=== PATIENT | male | born 1965 | race Caucasian/White ===

== ENCOUNTER 2018-03-08 17:31 | Observation (INO) | payer BC, SELFPAY ==
[~2018-03-08 17:31] MED LIST: ISOVUE-370 76%-LOCM 1 ML ONE
[2018-03-08 18:27] LABS: CKMB 1.7 ng/mL (0-6.6); Calcium 11.9 mg/dL (7.8-10.44); Troponin I Less than 0.010 ng/mL (< 0.028)
--- NOTE | 2018-03-08 18:29 | RAD ---
PORTABLE CHEST 03/08/18 PROVIDED CLINICAL HISTORY: Chest pain. FINDINGS: The cardiac and mediastinal silhouette is within normal limits. Lungs appear clear. No pleural fluid or pneumothorax apparent. IMPRESSION: No evidence for an acute cardiopulmonary process. POS: OFF
[2018-03-08 18:40] LABS: #Eosinphils 0.2 thou/uL (0.0-0.7); #Monocytes 0.7 thou/uL (0.11-0.59); #Neutrophils 7.9 thou/uL (1.40-6.50); %Eosinophils 1.4 % (0.0-10.0); %Lymphocytes 25.4 % (21.0-51.0); %Monocytes 6.3 % (0.0-10.0); Hemoglobin 15.4 g/dL (14.0-18.0); Mean Corpuscular HGB CONC 39.5 g/dL (32.0-36.0); Mean Corpuscular Hemoglobin 33.4 pg (27.0-31.0); Mean Corpuscular Volume 84.4 fL (78.0-98.0); Mean Platelet Volume 10.2 fL (7.4-10.4); Platelet Count 160 thou/uL (130-400); RBC Distribution Width 13.7 % (11.5-14.5); Red Blood Cell (RBC) Count 4.62 mill/uL (4.70-6.10); White Blood Cell (WBC) Count 11.8 thou/uL (4.8-10.8)
[2018-03-08 18:44] LABS: Band 2 % (5-11); Lymphocytes 13 % (21-51); MDiff Complete? YES; Monocytes 3 % (0-10); Neutrophil 82 % (42-75); PLT Morphology Comment Appears Adequate
[2018-03-08 19:07] LABS: Sodium 136 mmol/L (136-145)
[2018-03-08 19:08] LABS: Chloride 98 mmol/L (98-107); Potassium 4.7 mmol/L (3.5-5.1)
[2018-03-08 19:09] LABS: Anion Gap 20 mmol/L (10-20); BUN (Urea Nitrogen) 17 mg/dL (8.4-25.7); Carbon Dioxide 23 mmol/L (22-29)
[2018-03-08 19:10] LABS: Bilirubin, Total 0.7 mg/dL (0.2-1.2); Calc. Creatinine Clearance 0 mL/min (70-130); Estimated GFR-MDRD 86; Glucose 362 mg/dL (70-105); Protein, Total 6.8 g/dL (6.0-8.3)
[2018-03-08 19:11] LABS: Albumin 4.6 g/dL (3.5-5.0); Globulin 2.2 g/dL (2.4-3.5)
[2018-03-08 19:12] LABS: AST (SGOT) 38 U/L (5-34); Alkaline Phosphatase 100 U/L (40-150)
[2018-03-08 19:13] LABS: ALT (SGPT) 47 U/L (8-55); CK (CPK) 118 U/L (30-200)
[2018-03-08] MEDS ORDERED: Acetaminophen 500 MG TAB ONE (19:25)
[2018-03-08 20:00] LABS: Bilirubin Negative (Negative); Blood, Urine Trace (Negative); Clarity CLEAR (Clear); Glucose, Urine (Dipstick) >=1000 mg/dL (Negative); Leukocyte Negative (Negative); Nitrite Negative (Negative); Protein, Urine (Dipstick) > or equal to 300 mg/dL (Neg-Trace); Specific Gravity, Urine 1.037 (1.002-1.036); Urobilinogen 0.2 mg/dL (0.2-1.0); pH, Urine 6.5 (5.0-9.0)
[2018-03-08 20:02] LABS: Bacteria/HPF None Seen HPF (None Seen); Hyaline Casts/LPF 0-3 HYALINE CAST LPF (0-3 Hyaline); RBC/HPF 0-3 HPF (0-3); Squamous Epithelial 0-3 HPF (0-3); WBC/HPF 0-3 HPF (0-3)
--- NOTE | 2018-03-08 20:58 | CT ---
CTA THORAX WITH CONTRAST: (Computed Tomographic Angiography, chest(noncoronary) with contrast material, and image postprocessin g) (PE protocol) Date: 03/08/18 Time: 8:26 p.m. HISTORY: 52-year-old male with chest pain and dyspnea. TECHNIQUE: IV injection of iodinated contrast: Isovue Scan acquisition timing attempted to coincide with iodinated contrast bolus reaching maximal density in pulmonary arteries. 3D MIP reconstructions. FINDINGS: Pulmonary thromboembolism: none. Lungs: no consolidation or edema. Pneumothorax: none. Pleural effusion: none. There is no thoracic aortic aneurysm or dissection. No cardiomegaly or pericardial effusion. No signi ficant mediastinal or hilar lymphadenopathy. No destructive osseous lesion. No suspicious pulmonary n odule. The liver and spleen are only partially imaged. They both appear enlarged. Hepatic attenuation is diffusely low, consistent with fatty liver. IMPRESSION: 1. No pulmonary thromboembolism. 2. Hepatic steatosis. 3. Hepatosplenomegaly. jnr POS: COURTNEY
[2018-03-08] MEDS ORDERED: Pantoprazole 40 MG VIAL ONE (21:18)
[2018-03-08] MEDS ORDERED: Famotidine 20 MG TAB ONE (21:18)
[2018-03-08] MEDS ORDERED: Nitroglycerin 0.4 MG TAB (25 Tab Bottle) PO PRN (22:27)
[2018-03-08] MEDS ORDERED: Acetaminophen 325 MG TAB PO PRN (23:09)
[2018-03-08] MEDS ORDERED: Ondansetron ODT 4 MG TAB SL PRN (23:09)
[2018-03-08] MEDS ORDERED: Ondansetron HCl/PF 4 MG/2 ML Vial IVP PRN (23:09)
[2018-03-08] MEDS ORDERED: Sodium Chloride 0.9% 1,000 ML IV SCH (23:15)
[2018-03-08 23:31] LABS: Troponin I Less than 0.010 ng/mL (< 0.028)
[2018-03-09 00:11] VITALS: BMI 34.7
[2018-03-09] MEDS ORDERED: Dextrose 50% Abboject 50 ML SYRINGE IVP PRN (01:39)
[2018-03-09] MEDS ORDERED: Dextrose 5% in Water 1,000 ML IV PRN (01:39)
[2018-03-09] MEDS ORDERED: Insulin Regular 300 UNITS/3 ML VIAL SC PRN ×2 (01:39)
[2018-03-09 01:44] LABS: Troponin I Less than 0.010 ng/mL (< 0.028)
[2018-03-09 06:42] LABS: Triglycerides Greater than 3800 mg/dL (Less than 150)
[2018-03-09 06:44] LABS: HDL Cholesterol 21 mg/dL (>60 Neg Risk)
--- NOTE | 2018-03-09 07:55 | HP ---
PRIMARY CARE PHYSICIAN: Enrrique Hendricks MD TIME OF EVALUATION: 10:50 p.m. code status : full code CHIEF COMPLAINT: Chest pain. HISTORY OF PRESENT ILLNESS: A 52-year-old male patient with past medical history of high blood pressure, high cholesterol, diabetes, came to the hospital after having chest pain for 1 week ago. The patient has been on and off, no clear triggers, no alleviating factors, the patient reported the pain has been getting gradually worse, it became severe, most of the time it is about 6/10. REVIEW OF SYSTEMS: Constitutional: No fever, no chills, generalized weakness. Respiratory: No cough, no sputum production, no shortness of breath. Cardiovascular: Chest pain, palpitations, no shortness of breath. Gastrointestinal: No nausea, no vomiting, no diarrhea, no abdominal pain. Central Nervous System: No dizziness, no headache, no feeling lightheaded. Genitourinary: No burning on urination. Extremities: Bilateral leg swelling. All other systems were reviewed and negative except for the findings mentioned in the HPI. PAST MEDICAL HISTORY: High blood pressure, diabetes, high cholesterol. PAST SURGICAL HISTORY: Not reported. PSYCHIATRIC HISTORY: Not reported. SOCIAL HISTORY: No alcohol use, no drugs, no smoking history. ALLERGIES: BENADRYL and DEMEROL. REPORTED MEDICATIONS: Tylenol 325 q.6 hours p.r.n. and aspirin 81 mg daily. PHYSICAL EXAMINATION: VITAL SIGNS: On presentation, blood pressure 163/113, heart rate was 124, respiratory rate was 22, temperature 98.2. Pain 6/10. GENERAL APPEARANCE: The patient is alert, oriented, not in acute distress. HEENT: Eye: Normal conjunctivae. Moist oral mucosae. Anicteric. NECK: No JVD. RESPIRATORY: Bilateral air entry. No rales, no wheezing. Symmetric expansion. CARDIOVASCULAR: Normal rate, regular rhythm. No murmurs, no gallop, no edema. ABDOMEN: Soft. Normal bowel sounds. MUSCULOSKELETAL: Baseline range of motion and strength. No tenderness. SKIN: Warm and intact. No pallor, no rash, no redness. NEUROLOGICAL: Baseline sensory. No evidence of any new focal weakness. Baseline speech. Cranial nerves seem to be intact. PSYCHIATRIC: Good mood. No anxiety. Oriented, optimal judgment. LABORATORY AND DIAGNOSTIC DATA: Reviewed. The patient has white blood cell count 11.8, hemoglobin 15.4, MCV 84, platelet count 160,000, neutrophils 82. Chemistry: Sodium 136, potassium 4.7, chloride 98, carbon dioxide 23, anion gap 20, BUN 17, creatinine 0.92, GFR 86, glucose 262, calcium 11.9, total bilirubin 0.7, AST 38. LFTs are normal. Troponin has been negative x3. UA was reviewed and was negative for infection. Chest CTA was done. The patient has no pulmonary thromboembolism, hepatic steatosis, hepatosplenomegaly. EKG was reviewed. The patient has an EKG showing sinus tachycardia at the rate of 119. No any other evidence of acute ischemic events. ASSESSMENT AND PLAN: The patient will be placed in the hospital with following medical conditions: 1. Chest pain, rule out acute coronary syndrome. Troponins are negative. EKG with no acute ischemic events. The patient willing to go for stress test, we will do in the morning. Further plan depending on stress test report. 2. Uncontrolled hypertension, reconcile home meds, may need IV p.r.n. medication for optimal control. 3. Uncontrolled diabetes, place the patient on sliding scale for optimal control, diabetic diet. 4. There was one episode of fever in the hospital, all workup was negative for infection, we will monitor, we will check for high cholesterol, low cholesterol diet is advised, reconcile home medications. 5. Hyperlipidemia. 6. dvt prophylaxis MTDD
[2018-03-09 07:58] LABS: Cholesterol 1280 mg/dL (< 200 Desired)
[2018-03-09] MEDS ORDERED: Aspirin 325 MG TAB PO SCH (08:00)
--- NOTE | 2018-03-09 14:29 | NM ---
CARDIAC SPECT: CLINICAL HISTORY: 52-year-old male with chest pain, diabetes, hypertension, and dyslipidemia. TECHNIQUE: A myocardial perfusion scan was performed using the single isotope one day protocol with technetium-9 9m sestamibi. 11 mCi were injected intravenously for the rest exam followed by 31 mCi for the stress exam. Exercise stress was monitored and interpreted by Dr. Díaz. FINDINGS: Homogeneous tracer distribution is seen in the myocardial segments on stress and rest images without fixed or reversible defects. GATED SPECT LVEF: 60%. WALL MOTION EXAM: Normal. IMPRESSION: Normal myocardial perfusion scan. POS: NINFA
[2018-03-09 16:03] VITALS: TEMP 98.9
[2018-03-09 16:10] VITALS: BP 151/89
--- NOTE | 2018-03-10 01:56 | DIS ---
DATE OF ADMISSION: 03/08/2018 DATE OF DISCHARGE: 03/09/2018 PROCEDURES PERFORMED: Nuclear stress test. PRIMARY CARE PROVIDER: None. MEDICATIONS: Reconciled at discharge. Resume medications: 1. Aspirin 81 mg daily. 2. Tylenol 500 mg every 6 hours as needed. New Medications: 1. Lovastatin 20 mg in the evening. 2. Fish oil 1000 mg b.i.d. [id number]. 3. Metformin extended release 500 mg once daily. Prescriptions provided for 30 days, no refills. FOLLOWUP: The patient does not have a primary care provider. [facility], specifically Dr. Ahn if she is available. ISSUES TO FOLLOW UP ON IN THE OUTPATIENT SETTIN. Severe hypertriglyceridemia - medication started at discharge 2. Diabetes mellitus, uncontrolled - medication started at discharge 3. Hypercalcemia. 4. Abdominal pain. 5. History of vitamin D deficiency. 6. Hypertension - medication NOT started - see below FINAL DIAGNOSES: 1. Chest pain, with negative cardiac workup. 2. Hypertension. 3. Hypertriglyceridemia. 4. Hypercalcemia. 5. History of vitamin D deficiency. 6. Abdominal pain. 7. Hepatosplenomegaly. 8. Hepatic steatosis HISTORY OF PRESENT ILLNESS: Mr. Carver is a 52-year-old male, who has been away from medical care for the past 10 years due to lack of insurance, who presents with a week of intermittent and at times chest pressure, heart fluttering, upper abdominal discomfort. He was admitted for cardiac evaluation. HOSPITAL COURSE: The patient was monitored overnight and maintained a sinus rhythm with a rate of 80-100 with PACs and an intermittent bundle branch block. He was ruled out with 3 negative troponins, and underwent nuclear stress testing, which showed no significant changes on EKG, and the nuclear medicine reports no perfusion defects with an estimated ejection fraction of 60%. He denies any chest discomfort now. He does report mid abdominal kind of a burning sensation. It is not causing any nausea or vomiting, or limiting PO intake. He is encouraged to follow up with the primary care provider to discuss this further for an outpatient workup. In addition, patient did underwent a CT angiogram, which was negative for PE. It does show some hepatosplenomegaly and hepatic steatosis. The patient does have multiple things for evaluation as an outpatient. First, he has an elevated calcium level at 11.9, his blood sugars here have been in the 300s, his blood pressures have ranged from 139 systolic to 153, the abdominal discomfort, triglycerides of 3800, and a history of vitamin D deficiency. He is aware that these were not evaluated here, and do warrant the attention of the primary care provider that he will follow up with consistently. The patient is being discharged to start on lovastatin, fish oil, metformin extended release. He is aware that this is just to get started back on medication. I am holding today on resuming an antihypertensive, as he has a history of headaches with lisinopril. In review of hydrochlorothiazide, it can cause hypercalcemia, which is concerning given that his measured calcium level here is elevated. We are using medications from the [employer] list, which is he reports he'll be able to obtain. He is agreeable to consider the [facility] and follow up on these issues. We discussed the possible long-term impact of these remaining untreated resulting in further health decline or a shortened life. Patient is chest pain free, has a negative cardiac work-up and benign abdominal exam. He meets criteria for discharge to home, with the above items to be addressed in the outpatient setting. He is aware of the return to ER precautions for ANY concerns at ANY time related to any aspect of his health. PHYSICAL EXAMINATION: On day of discharge, VITAL SIGNS: His blood pressure 139/86, temperature 98.5, pulse 98, respirations 18, saturations 95% on room air. GENERAL: Awake, alert, responsive, in no apparent distress, able to speak in regular sentences. LUNGS: Clear to auscultation bilateral. HEART: Normal S1 and S2, regular rate and rhythm. ABDOMEN: Soft. Present bowel sounds. Nontender, nondistended. CALLE FINDINGS AND TEST RESULTS: 1. CBC: 11.8, 15.4, 39.0, 160. 2. Chemistry: 136, 4.7, 98, 23, 17, 0.92, 362. 3. Calcium 11.9. 4. Total bilirubin 0.7, AST 38, ALT 47, alkaline phosphatase 100, total protein 6.8, albumin 4.6. 5. Troponins x3 negative. 6. Triglycerides 3800, HDL 21, total cholesterol estimated at 1280. 7. Urinalysis shows spec gravity of 1.037, present protein, present glucose, present ketones, and trace blood. 8. Nuclear stress test shows EF of 60%, normal wall motion and a normal myocardial perfusion scan. 9. CT angiogram negative for PE, it does show hepatic steatosis and hepatosplenomegaly. 10. Chest x-ray shows no evidence of an acute cardiopulmonary process. DIET: Heart healthy, low carbohydrate. ACTIVITY: As tolerated. I reviewed with patient and his son this hospitalization, what was evaluated, what needs evaluation as an outpatient, and return for care precautions. They both demonstrate understanding and are without questions. Total time coordinating discharge is 30 minutes. DISCHARGE DISPOSITION: To home. CODE STATUS: FULL. MTDD
== END 2018-03-09 16:35 | disposition home or self-care (01) ==
LOC: ERS 17:31 → 2SW 22:55
PROVIDERS: ADMIT Hospitalist; ATTEND Hospitalist
DX: R07.9 Chest pain, unspecified (principal); I10 Essential (primary) hypertension; E78.1 Pure hyperglyceridemia; E83.52 Hypercalcemia; E11.65 Type 2 diabetes mellitus with hyperglycemia; K76.0 Fatty (change of) liver, not elsewhere classified; Z79.82 Long term (current) use of aspirin; Z88.5 Allergy status to narcotic agent; Z88.8 Allergy status to other drugs, medicaments and biological substances
CPT/HCPCS: 36415; 36416; 71045; 71275; 78452; 80053; 80061; 81003; 81015; 82553; 84484; 85025; 90471; 90732; 93005; 93017; 94760; 96361; 96374; A4216; A9500; C9113; G0009; G0378

== ENCOUNTER 2019-04-07 14:11 | Emergency (ER) | payer SELFPAY ==
[2019-04-07] MEDS ORDERED: HYDROcodone/Acetaminophen 10/325 mg Tablet ONE (14:29)
[2019-04-07] MEDS ORDERED: Lidocaine 1% w/Epinephrine 1:100K 20 ML VIAL ONE (14:29)
== END 2019-04-07 14:59 | disposition home or self-care (01) ==
LOC: ERS 14:11
DX: L02.11 Cutaneous abscess of neck (principal); I10 Essential (primary) hypertension; E11.9 Type 2 diabetes mellitus without complications
CPT/HCPCS: 10060; J2001

== ENCOUNTER 2020-10-31 17:02 | Emergency (ER) | payer SELFPAY ==
[2020-10-31] MEDS ORDERED: Ketorolac Tromethamine 30 MG/ML VIAL ONE (18:30)
[2020-10-31 19:06] LABS: #Eosinphils 0.3 thou/uL (0.0-0.7); #Lymphocytes 2.7 thou/uL (1.20-3.40); #Monocytes 0.4 thou/uL (0.11-0.59); %Basophils 0.7 % (0.0-1.0); %Monocytes 6.9 % (0.0-10.0); %Neutrophils 46.4 % (42.0-75.0); Hemoglobin 16.4 g/dL (14.0-18.0); Mean Corpuscular HGB CONC 39.1 g/dL (32.0-36.0); Mean Corpuscular Hemoglobin 32.6 pg (27.0-31.0); Mean Corpuscular Volume 83.4 fL (78.0-98.0); Mean Platelet Volume 10.6 fL (7.4-10.4); Platelet Count 200 thou/uL (130-400); RBC Distribution Width 13.7 % (11.5-14.5); Red Blood Cell (RBC) Count 5.04 mill/uL (4.70-6.10); White Blood Cell (WBC) Count 6.4 thou/uL (4.8-10.8)
[2020-10-31 19:46] LABS: Bilirubin, Total 0.5 mg/dL (0.2-1.2)
[2020-10-31 19:47] LABS: Alkaline Phosphatase 75 U/L (40-110)
[2020-10-31 19:48] LABS: Calc. Creatinine Clearance 0 mL/min (70-130)
[2020-10-31 20:33] LABS: Bacteria/HPF None Seen HPF (None Seen); Bilirubin Negative (Negative); Blood, Urine Trace (Negative); Clarity Clear (Clear); Glucose, Urine (Dipstick) Greater than 1000 mg/dL (Negative); Ketone, Urine Negative (Negative); Leukocyte Negative Leu/uL (Negative); Nitrite Negative (Negative); Protein, Urine (Dipstick) 100 mg/dL (Neg-Trace); RBC/HPF 0-3 HPF (0-3); Specific Gravity, Urine 1.034 (1.002-1.036); Squamous Epithelial None Seen HPF (0-3); Urobilinogen Normal mg/dL (Less than 2); WBC/HPF 0-3 HPF (0-3); pH, Urine 5.5 (5.0-9.0)
[2020-10-31] MEDS ORDERED: HumaLOG 300 UNITS/3 ML VIAL ONE (20:48)
[2020-10-31 20:54] LABS: Potassium 4.4 mmol/L (3.5-5.1); Sodium 137 mmol/L (136-145)
[2020-10-31 20:55] LABS: Carbon Dioxide 19 mmol/L (22-29); Chloride 104 mmol/L (98-107)
[2020-10-31 20:56] LABS: Anion Gap 18 mmol/L (10-20); BUN (Urea Nitrogen) 13 mg/dL (8.4-25.7)
[2020-10-31] MEDS ORDERED: Insulin Regular 300 UNITS/3 ML VIAL ONE (20:56)
[2020-10-31 20:57] LABS: Glucose 307 mg/dL (70-105)
[2020-10-31 20:58] LABS: Protein, Total 6.8 g/dL (6.0-8.3)
[2020-10-31 20:59] LABS: Globulin 2.9 g/dL (2.4-3.5)
[2020-10-31 21:00] LABS: Base Excess-Venous -0.1 mmol/L (-2.0 to 3.0); Bicarbonate (HCO3v) 21.4 mmol/L (22.0-28.0); CO2 Tension (PvCO2) 26.8 mmHg (40.0-50.0); Calcium, Ionized 0.88 mmol/L (1.15-1.33); Chloride 102 mmol/L (98-107); Hemoglobin - Calc 14.8 g/dL (14.0-18.0); Sodium 135 mmol/L (138-145); T. Carbon Dioxide 22.3 mmol/L (22.0-28.0); vO2 Saturation-calc 77.1 % (60.0-85.0)
[2020-10-31 21:00] LABS: ALT (SGPT) 29 U/L (8-55); AST (SGOT) 42 U/L (5-34)
[2020-10-31 21:02] LABS: Lipase 89 U/L (8-78)
[2020-10-31 21:03] LABS: Alcohol Less than 10 mg/dL (Less than 10)
== END 2020-10-31 21:45 | disposition home or self-care (01) ==
LOC: ERS 17:02
DX: M54.6 Pain in thoracic spine (principal); K02.9 Dental caries, unspecified; K04.7 Periapical abscess without sinus; G89.29 Other chronic pain; R07.89 Other chest pain; I10 Essential (primary) hypertension; E78.5 Hyperlipidemia, unspecified; E11.9 Type 2 diabetes mellitus without complications
CPT/HCPCS: 36415; 36416; 71046; 80053; 80307; 81003; 81015; 82330; 82803; 83690; 84484; 85025; 85652; 86140; 93005; 96374; J1815; J1885

== ENCOUNTER 2022-07-06 09:31 | Emergency (ER) | payer SELFPAY ==
[2022-07-06] MEDS ORDERED: Ketorolac Tromethamine 30 MG/ML VIAL ONE (11:54)
== END 2022-07-06 11:55 | disposition home or self-care (01) ==
LOC: ERS 09:31
DX: M62.838 Other muscle spasm (principal); M16.12 Unilateral primary osteoarthritis, left hip; E11.9 Type 2 diabetes mellitus without complications; Z79.84 Long term (current) use of oral hypoglycemic drugs; E78.5 Hyperlipidemia, unspecified; I10 Essential (primary) hypertension; Z79.899 Other long term (current) drug therapy; Z79.82 Long term (current) use of aspirin
CPT/HCPCS: 96372; J1885